=== PATIENT | female | born 1995 | race Caucasian/White ===

== ENCOUNTER 2017-02-21 10:40 | Emergency (ER) | payer SELFPAY ==
[~2017-02-21] VITALS: Wt 99.8 kg
[~2017-02-21 10:40] MED LIST: AMOXICILLIN500 M2 PO; KEPPRA1000 MG PO; KEPPRA500 MG PO
[2017-02-21 11:13] LABS: BASO % 0.4 % (0.0-1.0); EOS # 0.1 10*3/uL (0.0-0.4); EOS % 0.7 % (1.0-4.0); HEMATOCRIT 41.9 % (37.0-47.0); HEMOGLOBIN 13.6 g/dl (12.0-16.0); IG # 0.1 10*3/uL (0.0-0.1); LYMPH # 1.7 10*3/uL (1.3-4.4); LYMPH % 17.8 % (27.0-41.0); MEAN CELL VOLUME 91.3 fl (81.0-99.0); MEAN CORPUSCULAR HGB 29.6 pg (27.0-31.0); MEAN CORPUSCULAR HGB CONC 32.5 g/dl (33.0-37.0); MEAN PLATELET VOLUME 10.1 fl (9.6-12.3); MONO # 0.5 10*3/uL (0.1-1.0); NEUT # 7.4 10*3/uL (2.3-7.9); NEUT % 75.5 % (47.0-73.0); PLATELET COUNT AUTOMATED 267 10*3/uL (130-400); RED BLOOD COUNT 4.59 10*6/uL (4.10-5.10); RED CELL DISTRI WIDTH 13.5 % (0-14.5); WHITE BLOOD COUNT 9.8 10*3/uL (4.8-10.8)
[2017-02-21 11:30] LABS: ALBUMIN 3.3 gm/dl (3.1-4.5); ALKALINE PHOSPHATASE 92 U/L (45-117); BILIRUBIN, TOTAL 0.4 mg/dl (0.2-1.0); BUN 11 mg/dl (7-24); CARBON DIOXIDE 25 mmol/L (21-32); CHLORIDE 106 mmol/L (98-107); EST GLOM FILT AFRICAN AMERICAN > 60 ml/min; GLUCOSE 96 mg/dL (65-99); POTASSIUM 4.1 mmol/L (3.5-5.1); SGOT/AST 24 IU/L (3-35); SGPT/ALT 52 U/L (12-78); SODIUM 140 mmol/L (136-145); TOTAL PROTEIN 7.2 gm/dL (6.4-8.2)
[2017-02-21 13:47] LABS: BILIRUBIN NEGATIVE (NEGATIVE); BLOOD TRACE-INTACT (NEGATIVE); CLARITY SL CLOUDY (CLEAR); COLOR YELLOW (YELLOW); GLUCOSE NEGATIVE (NEGATIVE); KETONE NEGATIVE (NEGATIVE); LEUKO ESTERASE NEGATIVE (NEGATIVE); NITRITE NEGATIVE (NEGATIVE); PROTEIN 1+ (NEGATIVE); SPECIFIC GRAVITY 1.025 (1.005-1.030); UROBILINOGEN 0.2 E.U./dl (0.2-1.0)
[2017-02-21 14:12] LABS: BACTERIA 1+; MUCOUS 1+; URINE REFLEX COMMENT NO (NO)
== END 2017-02-21 16:56 | disposition other institution (70) ==
LOC: ED 10:40
PROVIDERS: Registered Nurse
DX: G40.909 Epilepsy, unspecified, not intractable, without status epilepticus (principal); G93.9 Disorder of brain, unspecified; R22.0 Localized swelling, mass and lump, head

== ENCOUNTER 2017-03-20 19:34 | Emergency (ER) | payer OTHER ==
[~2017-03-20] VITALS: Ht 162.5 cm; Wt 131.1 kg
[2017-03-20] MEDS ORDERED: VITAMIN B-625 M1 PO (19:42)
[2017-03-20] MEDS ORDERED: BENADRYL25 M2 PO (19:51)
[2017-03-20] MEDS ORDERED: CEFADROXIL500 M1 PO (19:51)
== END 2017-03-20 20:04 | disposition home or self-care (01) ==
LOC: ED 19:34 → EDBD 19:36 → ED 19:36
DX: R21 Rash and other nonspecific skin eruption (principal); Z79.899 Other long term (current) drug therapy

== ENCOUNTER 2018-01-20 15:12 | Emergency (ER) | payer SELFPAY ==
[~2018-01-20 15:12] MED LIST changes: +BENADRYL25 M2 PO; +CEFADROXIL500 M1 PO; +VITAMIN B-625 M1 PO
== END 2018-01-20 16:22 | disposition home or self-care (01) ==
LOC: ED 15:12
DX: L30.9 Dermatitis, unspecified (principal); G40.909 Epilepsy, unspecified, not intractable, without status epilepticus; Z79.899 Other long term (current) drug therapy

== ENCOUNTER 2019-12-11 10:37 | Emergency (ER) | payer OTHER ==
[~2019-12-11] VITALS: Ht 162.5 cm; Wt 127.0 kg
[2019-12-11] MEDS ORDERED: ZYRTEC10 M3 PO (10:47)
[2019-12-11] MEDS ORDERED: FLONASE ALLERG9.9 ML NAS (10:47)
== END 2019-12-11 10:47 | disposition home or self-care (01) ==
LOC: ED 10:37
DX: J06.9 Acute upper respiratory infection, unspecified (principal); R56.9 Unspecified convulsions

== ENCOUNTER 2021-04-25 11:00 | Emergency (ER) | payer OTHER ==
[~2021-04-25 11:00] MED LIST changes: +FLONASE ALLERG9.9 ML NAS; +ZYRTEC10 M3 PO
[2021-04-25 11:24] LABS: BILIRUBIN Negative (Negative); BLOOD 3+ (Negative); CLARITY Turbid (Clear); COLOR Dark Yellow (Yellow); GLUCOSE Negative (Negative); KETONE Negative (Negative); LEUKO ESTERASE 2+ (Negative); NITRITE Negative (Negative); SPECIFIC GRAVITY >= 1.030 (1.001-1.030)
[2021-04-25 11:35] LABS: BACTERIA 1+; MUCOUS 2+; RBC 16-20 rbc/hpf (0-2)
[2021-04-25] MEDS ORDERED: SEPTDS PO (12:23)
== END 2021-04-25 12:26 | disposition home or self-care (01) ==
LOC: ED 11:00
PROVIDERS: Emergency Medicine
DX: N39.0 Urinary tract infection, site not specified (principal); Z79.899 Other long term (current) drug therapy

== ENCOUNTER 2022-01-25 16:52 | Emergency (ER) | payer OTHER ==
[~2022-01-25] VITALS: Wt 142.9 kg
[~2022-01-25 16:52] MED LIST changes: +SEPTDS PO
[2022-01-25] MEDS ORDERED: CEPHALEXIN500 M1 PO (17:09)
[2022-01-25] MEDS ORDERED: DIFLUCAN150 MG PO (17:09)
== END 2022-01-25 17:13 | disposition home or self-care (01) ==
LOC: ED 16:52
DX: N76.4 Abscess of vulva (principal); B37.3 Candidiasis of vulva and vagina

== ENCOUNTER 2022-03-04 18:58 | Emergency (ER) | payer OTHER ==
[~2022-03-04] VITALS: Ht 160 cm; Wt 90.7 kg
[~2022-03-04 18:58] MED LIST changes: +CEPHALEXIN500 M1 PO; +DIFLUCAN150 MG PO
== END 2022-03-04 21:47 | disposition home or self-care (01) ==
LOC: ED 18:58
DX: S96.912A Strain of unspecified muscle and tendon at ankle and foot level, left foot, initial encounter (principal); W18.39XA Other fall on same level, initial encounter; Y93.89 Activity, other specified; Y92.89 Other specified places as the place of occurrence of the external cause; Y99.8 Other external cause status

== ENCOUNTER 2022-03-14 19:07 | Emergency (ER) | payer OTHER ==
[~2022-03-14] VITALS: Ht 160 cm; Wt 136.1 kg
[2022-03-14 19:39] LABS: BILIRUBIN Negative (Negative); BLOOD 3+ (Negative); CLARITY Clear (Clear); COLOR Orange (Yellow); GLUCOSE Negative (Negative); KETONE Trace (Negative); LEUKO ESTERASE 1+ (Negative); NITRITE Negative (Negative); PH 6.5 (4.5-8.0); SPECIFIC GRAVITY 1.025 (1.001-1.030)
[2022-03-14 19:40] LABS: BASO % 0.2 % (0.0-1.0); EOS # 0.1 10*3/uL (0.0-0.4); EOS % 1.3 % (1.0-4.0); HEMATOCRIT 40.4 % (37.0-47.0); LYMPH # 2.6 10*3/uL (1.3-4.4); LYMPH % 30.3 % (27.0-41.0); MEAN CELL VOLUME 92.9 fl (81.0-99.0); MEAN CORPUSCULAR HGB 30.1 pg (27.0-31.0); MEAN CORPUSCULAR HGB CONC 32.4 g/dl (33.0-37.0); MEAN PLATELET VOLUME 9.9 fl (9.6-12.3); MONO # 0.5 10*3/uL (0.1-1.0); MONO % 5.5 % (3.0-9.0); NEUT # 5.4 10*3/uL (2.3-7.9); NEUT % 62.6 % (47.0-73.0); PLATELET COUNT AUTOMATED 289 10*3/uL (130-400); RED BLOOD COUNT 4.35 10*6/uL (4.10-5.10); RED CELL DISTRI WIDTH 13.1 % (0-14.5); WHITE BLOOD COUNT 8.7 10*3/uL (4.8-10.8)
[2022-03-14 19:53] LABS: BACTERIA 1+; RBC TNTC rbc/hpf (0-2); WBC 0-2 wbc/hpf (0-5)
[2022-03-14 19:56] LABS: ALKALINE PHOSPHATASE 120 U/L (45-117); BUN 15 mg/dl (7-24); CHLORIDE 106 mmol/L (98-107); CREATININE 0.79 mg/dL (0.55-1.02); POTASSIUM 3.8 mmol/L (3.5-5.1); SGOT/AST 29 IU/L (3-35); SGPT/ALT 61 U/L (12-78); SODIUM 138 mmol/L (136-145); TOTAL PROTEIN 7.8 gm/dL (6.4-8.2)
[2022-03-14 19:58] LABS: B-hCG (QUALITATIVE) NEGATIVE (NEGATIVE)
== END 2022-03-14 20:16 | disposition home or self-care (01) ==
LOC: ED 19:07
PROVIDERS: Physician Assistant
DX: N92.0 Excessive and frequent menstruation with regular cycle (principal); Z79.899 Other long term (current) drug therapy

== ENCOUNTER 2022-06-21 00:15 | Emergency (ER) | payer SELFPAY ==
[~2022-06-21] VITALS: Ht 162.5 cm; Wt 145.6 kg
== END 2022-06-21 00:53 | disposition left against medical advice (07) ==
LOC: ED 00:15
DX: K08.89 Other specified disorders of teeth and supporting structures (principal); R51.9 Headache, unspecified; Z53.21 Procedure and treatment not carried out due to patient leaving prior to being seen by health care provider

== ENCOUNTER 2022-07-06 19:10 | Emergency (ER) | payer OTHER | END 2022-07-06 19:37 | disposition left against medical advice (07) | LOC: ED 19:10 | DX: B37.9 Candidiasis, unspecified (principal); Z53.21 Procedure and treatment not carried out due to patient leaving prior to being seen by health care provider ==

== ENCOUNTER 2022-07-31 21:13 | Emergency (ER) | payer OTHER | END 2022-07-31 23:57 | disposition left against medical advice (07) | LOC: ED 21:13 | DX: Z53.21 Procedure and treatment not carried out due to patient leaving prior to being seen by health care provider (principal) ==

== ENCOUNTER → 2023-02-25 | Outpatient (CLI) | payer OTHER ==
[~2023-02-25] MED LIST changes: +MACROBID100 M1 PO; +MACRODANTIN100 M1 PO
[2023-02-25 13:49] LABS: BASO % 0.4 % (0.0-1.0); EOS # 0.1 10*3/uL (0.0-0.4); EOS % 1.1 % (1.0-4.0); LYMPH # 2.6 10*3/uL (1.3-4.4); LYMPH % 36.5 % (27.0-41.0); MEAN CELL VOLUME 91.9 fl (81.0-99.0); MEAN CORPUSCULAR HGB 29.1 pg (27.0-31.0); MEAN CORPUSCULAR HGB CONC 31.7 g/dl (33.0-37.0); MEAN PLATELET VOLUME 9.9 fl (9.6-12.3); MONO # 0.4 10*3/uL (0.1-1.0); NEUT # 3.9 10*3/uL (2.3-7.9); NEUT % 55.9 % (47.0-73.0); PLATELET COUNT AUTOMATED 280 10*3/uL (130-400); RED BLOOD COUNT 4.46 10*6/uL (4.10-5.10); RED CELL DISTRI WIDTH 13.3 % (0-14.5)
[2023-02-25 14:36] LABS: ALKALINE PHOSPHATASE 98 U/L (46-116); BUN 11 mg/dl (9-23); CHLORIDE 104 mmol/L (98-107); FREE T4 1.12 ng/dl (0.89-1.76); POTASSIUM 3.8 mmol/L (3.4-5.1); SGPT/ALT 34 U/L (10-49); THYROID STIM HORMONE (HS) 2.834 uIU/ml (0.550-4.780); TOTAL PROTEIN 7.7 gm/dL (6.0-8.0)
== END | disposition home or self-care (01) ==
LOC: LAB 13:34
PROVIDERS: ATTEND Family Medicine
DX: G40.901 Epilepsy, unspecified, not intractable, with status epilepticus (principal); R53.83 Other fatigue; R73.9 Hyperglycemia, unspecified; Z79.899 Other long term (current) drug therapy

== ENCOUNTER → 2023-05-24 | Outpatient (CLI) | payer MEDICAID | END | disposition home or self-care (01) | LOC: LAB 17:31 | PROVIDERS: ATTEND Student in an Organized Health Care Education/Training Program | DX: N91.2 Amenorrhea, unspecified (principal); R56.9 Unspecified convulsions ==

== ENCOUNTER 2023-08-03 16:05 | Emergency (ER) | payer OTHER ==
[~2023-08-03] VITALS: Ht 162.6 cm; Wt 141.1 kg
[2023-08-03] MEDS ORDERED: IBU800 M2 PO (17:48)
[2023-08-03] MEDS ORDERED: REGLAN10 M1 PO (17:48)
== END 2023-08-03 18:08 | disposition home or self-care (01) ==
LOC: ED 16:05
DX: R51.9 Headache, unspecified (principal); Z98.890 Other specified postprocedural states; F17.290 Nicotine dependence, other tobacco product, uncomplicated

== ENCOUNTER 2024-01-06 10:05 | Emergency (ER) | payer OTHER ==
[~2024-01-06] VITALS: Ht 160 cm; Wt 146.5 kg
[~2024-01-06 10:05] MED LIST changes: +IBU800 M2 PO; +REGLAN10 M1 PO
[2024-01-06] MEDS ORDERED: NATURE'S BLEND F1 MG PO (10:11)
[2024-01-06] MEDS ORDERED: FLUOXETINE HCL10 MG PO (10:12)
[2024-01-06] MEDS ORDERED: GNP PRENATAL 28-0.8 (10:12)
[2024-01-06] MEDS ORDERED: AVPAK LEVETIRA750 M1 PO (10:12)
== END 2024-01-06 10:27 | disposition home or self-care (01) ==
LOC: ED 10:05
DX: O99.512 Diseases of the respiratory system complicating pregnancy, second trimester (principal); Z3A.26 26 weeks gestation of pregnancy; Z98.890 Other specified postprocedural states

== ENCOUNTER 2024-04-21 16:17 | Emergency (ER) | payer OTHER ==
[~2024-04-21] VITALS: Ht 157.4 cm; Wt 140.2 kg
[~2024-04-21 16:17] MED LIST changes: +AVPAK LEVETIRA750 M1 PO; +FLUOXETINE HCL10 MG PO; +GNP PRENATAL 28-0.8; +NATURE'S BLEND F1 MG PO
[2024-04-21] MEDS ORDERED: LAMOTRIGINE150 MG PO (17:51)
[2024-04-21] MEDS ORDERED: SODIUM CHLORIDE 0.9% 1,000 ML IV ONE (18:40)
[2024-04-21] MEDS ORDERED: Dexamethasone Sodium Phospha 20 MG/5 ML VIAL IV ONE (18:40)
[2024-04-21] MEDS ORDERED: Ketorolac Tromethamine 15 MG/ML VIAL IV ONE (18:40)
[2024-04-21 18:57] LABS: BASO % 0.2 % (0.0-1.0); EOS # 0.1 10*3/uL (0.0-0.4); EOS % 0.7 % (1.0-4.0); HEMATOCRIT 36.3 % (37.0-47.0); LYMPH # 1.9 10*3/uL (1.3-4.4); LYMPH % 14.4 % (27.0-41.0); MEAN CELL VOLUME 93.1 fl (81.0-99.0); MEAN CORPUSCULAR HGB 29.7 pg (27.0-31.0); MEAN PLATELET VOLUME 9.1 fl (9.6-12.3); MONO # 0.5 10*3/uL (0.1-1.0); NEUT # 10.3 10*3/uL (2.3-7.9); NEUT % 80.1 % (47.0-73.0); PLATELET COUNT AUTOMATED 360 10*3/uL (130-400); RED CELL DISTRI WIDTH 13.8 % (0-14.5); WHITE BLOOD COUNT 12.8 10*3/uL (4.8-10.8)
[2024-04-21 19:15] LABS: BUN 8 mg/dl (9-23); CHLORIDE 105 mmol/L (98-107); POTASSIUM 3.5 mmol/L (3.4-5.1)
[2024-04-21] MEDS ORDERED: PREDNISONE10 M1 PO (19:42)
[2024-04-21] MEDS ORDERED: IBU800 M1 PO (19:42)
[2024-04-21] MEDS ORDERED: CHLORASEPTIC 1180 ML PO (19:43)
[2024-04-21] MEDS ORDERED: methylPREDNISolone acetate 40 MG/ML VIAL IM ONE (20:00)
[2024-04-21] MEDS ORDERED: Ketorolac Tromethamine 30 MG/ML VIAL IM ONE (20:00)
[2024-04-21] MEDS ORDERED: AMOX-CLAV 875-1 EACH PO (22:44)
== END 2024-04-21 19:45 | disposition home or self-care (01) ==
LOC: ED 16:17
PROVIDERS: Nurse Practitioner Family
DX: O90.89 Other complications of the puerperium, not elsewhere classified (principal); J02.0 Streptococcal pharyngitis; B27.99 Infectious mononucleosis, unspecified with other complication; F32.A Depression, unspecified; Z79.899 Other long term (current) drug therapy; Z98.890 Other specified postprocedural states